=== PATIENT | female | born 1995 | race Caucasian/White ===

== ENCOUNTER 2018-07-03 04:59 | Emergency (ER) | payer MEDICAID ==
[2018-07-03 05:06] VITALS: BP 113/67
--- NOTE | 2018-07-03 07:00 | ER Document Report ---
ED GI/ - General Mode of Arrival: Ambulatory Information source: Patient TRAVEL OUTSIDE OF THE [place] IN LAST 30 DAYS: No - General Chief Complaint: Vaginal Discharge Stated Complaint: OTHER Time Seen by Provider: 07/03/18 06:43 Notes: 22-year-old female that presents to the emergency department today with complaints of vaginal discharge. Patient states she feels like she has bacterial vaginosis. Patient states she has had this in the past and her discharge was very similar however today the smell is worse. Patient states her female partner has similar symptoms. Patient states she has tried taking over- the-counter cranberry supplements with no relief. Patient denies any dysuria or vaginal bleeding. (JACKSON KWON) Past Medical History - General Information source: Patient - Social History Smoking Status: Current Every Day Smoker Cigarette use (# per day): Yes Frequency of alcohol use: None Drug Abuse: None Lives with: Family Family History: Reviewed & Not Pertinent Patient has suicidal ideation: No Patient has homicidal ideation: No Renal/ Medical History: Denies: Hx Peritoneal Dialysis Surgical Hx: Negative Review of Systems - Review of Systems Constitutional: No symptoms reported EENT: No symptoms reported Cardiovascular: No symptoms reported Respiratory: No symptoms reported Gastrointestinal: No symptoms reported Genitourinary: See HPI, Discharge. denies: Dysuria Female Genitourinary: denies: Vaginal bleeding Musculoskeletal: No symptoms reported Skin: No symptoms reported Hematologic/Lymphatic: No symptoms reported Neurological/Psychological: No symptoms reported -: Yes All other systems reviewed and negative Physical Exam - Genitourinary External exam: Normal Speculum exam: Vaginal discharge - thin and white with moderate odor Vaginal bleeding: None Bimanuel exam: Normal. No: Cervical motion tender - Vital signs Vitals: Temp Pulse BP Pulse Ox 98.4 F 117 H 113/67 93 07/03/18 05:04 07/03/18 05:04 07/03/18 05:04 07/03/18 05:04 - Notes Notes: PHYSICAL EXAM GENERAL: Alert, interacts well. No acute distress. HEAD: Normocephalic, atraumatic. EYES: Pupils equal, round, and reactive to light. Extraocular movements intact. ENT: Oral mucosa moist, tongue midline. NECK: Full range of motion. Supple. Trachea midline. LUNGS: Clear to auscultation bilaterally, no wheezes, rales, or rhonchi. No respiratory distress. HEART: Regular rate and rhythm. No murmurs, gallops, or rubs. ABDOMEN: Soft, non-tender. Non-distended. Bowel sounds present in all 4 quadrants. No guarding, rigidity, or rebound. EXTREMITIES: Moves all 4 extremities spontaneously. NEUROLOGICAL: Alert and oriented x3. Normal speech. PSYCH: Normal affect, normal mood. SKIN: Warm, dry, normal turgor. No rashes or lesions noted. (JACKSON KWON) Course - Re-evaluation Re-evalutation: 07/03/18 09:38 Urinalysis unremarkable, wet prep unremarkable, GC chlamydia negative, physical examination consistent with bacterial vaginosis, counseled on no sexual activity or anything in the vagina until Flagyl treatment has been completed. Discharged home. (YVES SHAIKH) - Vital Signs Vital signs: Temp Pulse Resp BP Pulse Ox 98.4 F 110 H 16 113/67 96 07/03/18 05:05 07/03/18 05:05 07/03/18 05:05 07/03/18 05:05 07/03/18 05:05 Discharge - Discharge Clinical Impression: Bacterial vaginosis Condition: Stable Disposition: HOME, SELF-CARE Additional Instructions: Vaginosis, Bacterial Your exam shows you have bacterial vaginosis. This condition is due to an overgrowth of bacteria in the vagina. Symptoms may include vaginal itching or pain, a smelly discharge, and sometimes burning with urination. Normally this is not transmitted by sexual contact. Vaginosis can be treated with oral or topical antibiotics. Metronidazole ( Flagyl) pills are usually effective. Topical vaginal creams include Cleocin and Metro-Gel. You should avoid sexual contact until your symptoms are all better. Do not drink alcohol with the metronidazole (Flagyl). This medication will cause you to have severe vomiting if you drink alcohol with it. Call the doctor if you develop pelvic pain, fever, or problems with urination, or if you don't improve as expected. Prescriptions: Metronidazole 500 mg PO BID #14 tablet Scribe Attestation: 07/03/18 16:15 I personally performed the services described in the documentation, reviewed and edited the documentation which was dictated to the scribe in my presence, and it accurately records my words and actions. (YVES SHAIKH) Scribe Documentation - Scribe Written by Noemi:: Noemi Del Cid, 07/03/2018 0920 acting as scribe for :: Theron
[2018-07-03 07:43] LABS: EPITHELIALS (WET MOUNT) 4+ EPITHELIALS SEEN; T.VAGINALIS (WET MOUNT) NO TRICHOMONAS SEEN; WBCS (WET MOUNT) RARE WBCS SEEN; YEAST (WET MOUNT) NO YEAST SEEN
[2018-07-03 09:10] LABS: APPEARANCE,URINE CLEAR; BILIRUBIN,URINE NEGATIVE (NEGATIVE); COLOR,URINE YELLOW; GLUCOSE, URINE NEGATIVE (NEGATIVE); KETONES,URINE NEGATIVE (NEGATIVE); LEUKOCYTE ESTERASE,URINE NEGATIVE (NEGATIVE); NITRITE,URINE NEGATIVE (NEGATIVE); PROTEIN,URINE NEGATIVE (NEGATIVE); URINE SPECIFIC GRAVITY 1.011; UROBILINOGEN,URINE NEGATIVE mg/dL (<2.0)
[2018-07-03 09:21] LABS: CHLAM PCR NOT DETECTED (NOT DETECT); GON PCR NOT DETECTED (NOT DETECT)
[2018-07-03] MEDS ORDERED: METRONIDAZOLE 500 MG TABLET PO ONE (09:38)
== END 2018-07-03 09:57 | disposition home or self-care (01) ==
LOC: ER 04:59
DX: N76.0 Acute vaginitis (principal); B96.89 Other specified bacterial agents as the cause of diseases classified elsewhere; F17.210 Nicotine dependence, cigarettes, uncomplicated
CPT/HCPCS: 81001; 81025; 87210; 87491; 87591; 99283

== ENCOUNTER 2018-11-18 21:32 | Emergency (ER) | payer MEDICAID | END 2018-11-18 22:10 | disposition left against medical advice (07) | LOC: ER 21:32 | DX: Z53.21 Procedure and treatment not carried out due to patient leaving prior to being seen by health care provider (principal); R10.2 Pelvic and perineal pain ==

== ENCOUNTER 2018-11-22 20:27 | Emergency (ER) | payer MEDICAID ==
[2018-11-22] MEDS ORDERED: NORMAL SALINE 1000 ML 1,000 ML IV ONE (22:32)
[2018-11-22] MEDS ORDERED: KETOROLAC TROMETHAMINE INJ/PF 30 MG/1 ML SDV IV ONE (22:32)
[2018-11-22] MEDS ORDERED: LIDOCAINE 2% VISCOUS SOLN 20 ML UDCUP PO ONE (22:35)
[2018-11-22] MEDS ORDERED: MAG HYDROX/AL HYDROX/SIMETH SUSP 30 ML UDCUP PO ONE (22:35)
--- NOTE | 2018-11-22 22:35 | ER Document Report ---
HPI - HPI Patient complains to provider of: Chest pain, abdominal pain, pain with intercourse Time Seen by Provider: 11/22/18 22:07 Onset: Other - 2 days Onset/Duration: Persistent Quality of pain: Achy Pain Level: 3 Context: Patient presents complaining of a 2-day history of cough and complaints of chest pain in which she points from midsternal area to epigastric area. Patient complains of hot flashes and pelvic cramping and states she has had pain with intercourse for several months. Patient states that she has had vaginal bleeding for the past month. Patient states that she did go to her psych nurse and had her IUD taken out 3 days ago as she was concerned that this may be causing her problems. Patient states that her provider wanted to do a test and STD testing before ordering any ultrasound and patient states that she is concerned that she has a pelvic infection from her IUD and would like an ultrasound. Patient states she did not need to have STD testing testing as she is a lesbian. Associated Symptoms: Chest pain, Nonproductive cough, Other - Vaginal bleeding, pelvic pain, pain with intercourse. denies: Vomiting Exacerbated by: Denies Relieved by: Denies Similar symptoms previously: No Recently seen / treated by doctor: Yes - ROS ROS below otherwise negative: Yes Systems Reviewed and Negative: Yes All other systems reviewed and negative - NEURO Neurology: DENIES: Headache - CARDIOVASCULAR Cardiovascular: REPORTS: Chest pain - RESPIRATORY Respiratory: REPORTS: Coughing - 2 days. DENIES: Trouble Breathing - GASTROINTESTINAL Gastrointestinal: REPORTS: Abdominal Pain. DENIES: Nausea, Patient vomiting - URINARY Urinary: DENIES: Dysuria - REPRODUCTIVE Reproductive: REPORTS: Abnormal bleeding / discharge. DENIES: : - MUSCULOSKELETAL Musculoskeletal: DENIES: Back Pain - DERM Skin Color: Normal Skin Problems: None Past Medical History - General Information source: Patient - Social History Smoking Status: Current Every Day Smoker Chew tobacco use (# tins/day): No Frequency of alcohol use: None Drug Abuse: None Occupation: None Family History: Reviewed & Not Pertinent Patient has suicidal ideation: No Patient has homicidal ideation: No Pulmonary Medical History: Reports: Hx Asthma Renal/ Medical History: Denies: Hx Peritoneal Dialysis Surgical Hx: Negative Vertical Provider Document - CONSTITUTIONAL Agree With Documented VS: Yes Exam Limitations: No Limitations General Appearance: WD/WN, No Apparent Distress - INFECTION CONTROL TRAVEL OUTSIDE OF THE [place] IN LAST 30 DAYS: No - HEENT HEENT: Atraumatic, Normocephalic, Pharyngeal Tenderness. negative: Pharyngeal Exudate, Pharyngeal Erythema - NECK Neck: Normal Inspection, Supple. negative: Lymphadenopathy-Left, Lymphadenop athy-Right - RESPIRATORY Respiratory: Breath Sounds Normal, No Respiratory Distress - CARDIOVASCULAR Cardiovascular: Regular Rhythm, No Murmur, Tachycardia - GI/ABDOMEN Gastrointestinal: Abdomen Soft, Abdomen Tender - Epigastric tenderness, lower pelvic tenderness, abdomen soft, no guarding, No Organomegaly - REPRODUCTIVE Female Genitalia: CMT, Adnexal Pain-Right, Adnexal Pain-Left Notes: Patient with moderate amount of vaginal bleeding, no clots. - BACK Back: Normal Inspection. negative: CVA Tenderness-Right, CVA Tenderness-Left - MUSCULOSKELETAL/EXTREMETIES Musculoskeletal/Extremeties: GERBER DAVIES - NEURO Level of Consciousness: Awake, Alert, Appropriate Motor/Sensory: No Motor Deficit - DERM Integumentary: Warm, Dry, No Rash Course - Re-evaluation Re-evalutation: 11/23/18 01:06 Patient's respirations even unlabored, no cough noted on examination. Patient with sinus rhythm noted on EKG, patient does report a history of asthma although has not had any wheezing and does have an inhaler at home. Pt reports that GI cocktail did help her epigastric pain symptoms which have resolved. Patient is concerned that she has a pelvic infection due to her IUD and would like prophylactic treatment for possible pelvic infection at this time given her history of painful intercourse. Patient with right ovarian cyst. Patient encouraged to recheck with her psych nurse for further follow-up of this finding. Patient with stable vital signs without any leukocytosis. No concern for appendicitis at this time. Patient nontoxic in appearance. Patient agreeab le with discharge plan of care. - Vital Signs Vital signs: Temp Pulse Resp BP Pulse Ox 98.7 F 111 H 14 103/66 99 11/22/18 20:41 11/22/18 20:41 11/22/18 20:41 11/22/18 20:41 11/22/18 20:41 - Laboratory Result Diagrams: 11/22/18 22:57 11/22/18 22:57 Laboratory results interpreted by me: 11/23/18 01:06 Labs- Entire Visit 11/22/18 11/22/18 11/22/18 22:57 22:57 22:57 WBC 6.0 RBC 3.92 Hgb 13.4 Hct 38.1 MCV 97 MCH 34.2 H MCHC 35.2 RDW 12.4 Plt Count 162 Seg Neutrophils % 75.4 Lymphocytes % 14.4 Monocytes % 8.6 Eosinophils % 1.2 Basophils % 0.4 Absolute Neutrophils 4.5 Absolute Lymphocytes 0.9 Absolute Monocytes 0.5 Absolute Eosinophils 0.1 Absolute Basophils 0.0 Sodium 139.8 Potassium 3.6 Chloride 102 Carbon Dioxide 30 Anion Gap 8 BUN 10 Creatinine 0.55 Est GFR ( Amer) > 60 Est GFR (Non-Af Amer) > 60 Glucose 122 H Calcium 9.4 Total Bilirubin 1.6 H Direct Bilirubin 0.0 Neonat Total Bilirubin Not Reportable Neonat Direct Bilirubin Not Reportable Neonat Indirect Bili Not Reportable AST 16 ALT 19 Alkaline Phosphatase 65 Total Protein 6.6 Albumin 4.4 Lipase 28.8 Serum HCG, Qual NEGATIVE Urine Color Urine Appearance Urine pH Ur Specific [place] Urine Protein Urine Glucose (UA) Urine Ketones Urine Blood Urine Nitrite Urine Bilirubin Urine Urobilinogen Ur Leukocyte Esterase Urine WBC (Auto) Urine RBC (Auto) Squamous Epi Cells Auto Urine Mucus (Auto) Urine Ascorbic Acid Trichomonas (Wet Prep) Vaginal WBC Vaginal RBC Vaginal Yeast Group A Strep Rapid 11/22/18 11/23/18 11/23/18 23:00 00:09 00:09 WBC RBC Hgb Hct MCV MCH MCHC RDW Plt Count Seg Neutrophils % Lymphocytes % Monocytes % Eosinophils % Basophils % Absolute Neutrophils Absolute Lymphocytes Absolute Monocytes Absolute Eosinophils Absolute Basophils Sodium Potassium Chloride Carbon Dioxide Anion Gap BUN Creatinine Est GFR ( Amer) Est GFR (Non-Af Amer) Glucose Calcium Total Bilirubin Direct Bilirubin Neonat Total Bilirubin Neonat Direct Bilirubin Neonat Indirect Bili AST ALT Alkaline Phosphatase Total Protein Albumin Lipase Serum HCG, Qual Urine Color YELLOW Urine Appearance SLIGHTLY-CLOUDY Urine pH 7.0 Ur Specific [place] 1.026 Urine Protein NEGATIVE Urine Glucose (UA) NEGATIVE Urine Ketones NEGATIVE Urine Blood NEGATIVE Urine Nitrite NEGATIVE Urine Bilirubin NEGATIVE Urine Urobilinogen 4.0 H Ur Leukocyte Esterase NEGATIVE Urine WBC (Auto) 0 Urine RBC (Auto) 0 Squamous Epi Cells Auto 2 Urine Mucus (Auto) MOD Urine Ascorbic Acid 40 H Trichomonas (Wet Prep) NO TRICHOMONAS SEEN Vaginal WBC RARE WBCS SEEN Vaginal RBC 2+ RBCS SEEN Vaginal Yeast NO YEAST SEEN Group A Strep Rapid NEGATIVE - Diagnostic Test Radiology reviewed: Reports reviewed - EKG Interpretation by Me EKG shows normal: Sinus rhythm Rate: Normal Additional EKG results interpreted by me: 11/23/18 01:[address] elevation, no T wave inversion. QTC 455 Discharge - Discharge Clinical Impression: Dyspareunia Upper respiratory infection Qualifiers: URI type: unspecified URI Qualified Code(s): J06.9 - Acute upper respiratory infection, unspecified GERD (gastroesophageal reflux disease) Qualifiers: Esophagitis presence: esophagitis presence not specified Qualified Code(s): K21.9 - Gastro-esophageal reflux disease without esophagitis Ovarian cyst Qualifiers: Laterality: right Qualified Code(s): N83.201 - Unspecified ovarian cyst, right side Condition: Stable Disposition: HOME, SELF-CARE Instructions: Doxycycline ([facility]), Ovarian Cyst ([facility]), Reflux Disease (GERD) ([facility]), Rocephin ([facility]), Upper Respiratory Illness ([facility]) Additional Instructions: Return immediately for any new or worsening symptoms Followup with your primary care provider, call tomorrow to make a followup appointment Follow-up with a psych nurse for recheck Prescriptions: Doxycycline Hyclate 100 mg PO BID #28 capsule Naproxen [Naprosyn 250 Nmg Tablet] 1 tab PO BID #14 tablet Omeprazole 20 mg PO DAILY #15 capsule. Ranitidine HCl [Zantac 150 mg Tablet] 150 mg PO BID #30 tablet Referrals: [facility] [Provider Group] - Follow up in 3-5 days
[2018-11-22 23:11] LABS: ABSOLUTE EOSINOPHILS # (AUTO) 0.1 10^3/uL (0.0-0.6); ABSOLUTE LYMPHOCYTES (AUTO) 0.9 10^3/uL (0.5-4.7); ABSOLUTE MONOCYTES (AUTO) 0.5 10^3/uL (0.1-1.4); ABSOLUTE NEUT (AUTO) 4.5 10^3/uL (1.7-8.2); BASOPHILS % (AUTO) 0.4 % (0-2); EOSINOPHILS % (AUTO) 1.2 % (0-6); HEMATOCRIT 38.1 % (36.0-47.0); HEMOGLOBIN 13.4 g/dL (12.0-15.5); LYMPHOCYTES % (AUTO) 14.4 % (13-45); MEAN CORPUSCULAR HEMOGLOBIN 34.2 pg (27.0-33.4); MEAN CORPUSCULAR HGB CONC 35.2 g/dL (32.0-36.0); MEAN CORPUSCULAR VOLUME 97 fl (80-97); MONOCYTES % (AUTO) 8.6 % (3-13); PLATELET COUNT 162 10^3/uL (150-450); RED BLOOD COUNT 3.92 10^6/uL (3.72-5.28); RED CELL DISTRIBUTION WIDTH 12.4 % (11.5-14.0); SEGMENTED NEUTROPHILS % (AUTO) 75.4 % (42-78); TOTAL CELLS COUNTED % (AUTO) 100 %
[2018-11-22 23:31] LABS: ALANINE AMINOTRANSFERASE 19 U/L (9-52); ALBUMIN 4.4 g/dL (3.5-5.0); ALKALINE PHOSPHATASE 65 U/L (38-126); ANION GAP 8 (5-19); ASPARTATE AMINO TRANSFERASE 16 U/L (14-36); BILIRUBIN,TOTAL 1.6 mg/dL (0.2-1.3); BLOOD UREA NITROGEN 10 mg/dL (7-20); CALCIUM 9.4 mg/dL (8.4-10.2); CARBON DIOXIDE 30 mmol/L (22-30); CHLORIDE 102 mmol/L (98-107); GLUCOSE 122 mg/dL (75-110); LIPASE 28.8 U/L (23-300); POTASSIUM 3.6 mmol/L (3.6-5.0); SODIUM 139.8 mmol/L (137-145); TOTAL PROTEIN 6.6 g/dL (6.3-8.2)
[2018-11-23 00:27] LABS: RBCS (WET MOUNT) 2+ RBCS SEEN; T.VAGINALIS (WET MOUNT) NO TRICHOMONAS SEEN; WBCS (WET MOUNT) RARE WBCS SEEN; YEAST (WET MOUNT) NO YEAST SEEN
[2018-11-23 00:31] LABS: APPEARANCE,URINE SLIGHTLY-CLOUDY; BILIRUBIN,URINE NEGATIVE (NEGATIVE); COLOR,URINE YELLOW; GLUCOSE, URINE NEGATIVE (NEGATIVE); KETONES,URINE NEGATIVE (NEGATIVE); LEUKOCYTE ESTERASE,URINE NEGATIVE (NEGATIVE); NITRITE,URINE NEGATIVE (NEGATIVE); PROTEIN,URINE NEGATIVE (NEGATIVE); URINE SPECIFIC GRAVITY 1.026
--- NOTE | 2018-11-23 00:45 | RADIOLOGY REPORT (SQ) ---
EXAM DESCRIPTION: US TRANSVAGINAL COMPLETED DATE/TME: 11/22/2018 22:32 CLINICAL HISTORY: 23 years, Female, pelvic pain Findings: Uterus is anteverted and measures 9.5 x 5.3 x 4.0 cm. Endometrium measures 8 mm in thickness. Cervix measures 3.4 cm in length. The right ovary measures 5.0 x 5.2 x 3.7 cm. Left ovary measures 3.5 x 2.5 x 2.2 cm. Right ovary demonstrates a simple thin-walled cyst measuring 4.7 x 4.3 cm. Vascular flow is preserved within both ovaries on color and spectral Doppler imaging. There is free fluid adjacent to the right ovary. IMPRESSION: Right ovarian cyst is noted. No imaging follow-up needed at this size and age. No evidence for torsion.
[2018-11-23] MEDS ORDERED: CEFTRIAXONE INJ 250 MG VIAL IV ONE (01:05)
[2018-11-23] MEDS ORDERED: DOXYCYCLINE HYCLATE 100 MG TABLET PO ONE (01:05)
[2018-11-23 01:15] VITALS: BP 94/58
[2018-11-23 01:53] LABS: CHLAM PCR NOT DETECTED (NOT DETECT); GON PCR NOT DETECTED (NOT DETECT)
--- NOTE | 2018-11-23 07:30 | EKG REPORT ---
SEVERITY:- NORMAL ECG - SINUS RHYTHM : Confirmed by: Jacye Baer MD 23-Nov-2018 07:29:40
== END 2018-11-23 01:57 | disposition home or self-care (01) ==
LOC: ER 20:27
DX: N94.10 Unspecified dyspareunia (principal); J06.9 Acute upper respiratory infection, unspecified; K21.9 Gastro-esophageal reflux disease without esophagitis; N83.201 Unspecified ovarian cyst, right side; R07.9 Chest pain, unspecified; R10.9 Unspecified abdominal pain; R05 Cough; N93.9 Abnormal uterine and vaginal bleeding, unspecified; R10.2 Pelvic and perineal pain; F17.200 Nicotine dependence, unspecified, uncomplicated
CPT/HCPCS: 93005; 99284; 96374; 96375; 36415; 87070; 87210; 87880; 83690; 84703; 85025; 80053; 81001; 87491; 87591; 76830; 93976; 93010; J3490 ×3; J1885; J7030; J0696

== ENCOUNTER 2019-01-02 22:46 | Emergency (ER) | payer SELFPAY ==
[2019-01-03] MEDS ORDERED: IBUPROFEN 800 MG TABLET PO ONE (01:17)
--- NOTE | 2019-01-03 01:23 | ER Document Report ---
Addendum entered and electronically signed by ZOILA CAICEDO PA-C 01/03/19 02:17: Discharge - Discharge Clinical Impression: Traumatic hematoma of multiple sites of lower extremity Qualifiers: Encounter type: initial encounter Laterality: right Qualified Code(s): S80.11XA - Contusion of right lower leg, initial encounter Condition: Good Instructions: Use of Crutches ([facility]), Ice & Elevation ([facility]), Oral Narcotic Medication ([facility]), Sprained Knee ([facility]) Additional Instructions: Keep ice for 20 minutes every hour. Elevate. Use crutches for nonweightbe aring. If your symptoms are not significantly better in about a week, consider calling the orthopedic doctor for recheck and further evaluation. Prescriptions: Naproxen 500 mg PO BID 5 Days #20 tablet Referrals: AGUS NICOLE MD [ACTIVE STAFF] - Follow up as needed Print Language: Malagasy Original Note: ED General - General Chief Complaint: Knee Injury Stated Complaint: KNEE INJURY Time Seen by Provider: 01/03/19 01:11 Mode of Arrival: Ambulatory Information source: Patient TRAVEL OUTSIDE OF THE [place] IN LAST 30 DAYS: No - HPI Patient complains to provider of: Right knee pain Onset: This afternoon Onset/Duration: Sudden Quality of pain: Sharp, Throbbing Severity: Severe Pain Level: 4 Associated symptoms: None Exacerbated by: Denies Relieved by: Denies Similar symptoms previously: No Recently seen / treated by doctor: No Notes: 23-year-old female here for right distal thigh and knee pain from injury. This afternoon she was feeding a coworkers horses and apparently 1 of the horses got over eager and started running with the patient and kicked her on accident and she has a large bruise/hematoma on the right distal femur and has pain to the right knee. She is able to ambulate. - Related Data Allergies/Adverse Reactions: No Known Allergies Allergy (Unverified 11/18/18 21:37) Past Medical History - General Information source: Patient - Social History Smoking Status: Unknown if Ever Smoked Family History: Reviewed & Not Pertinent Patient has suicidal ideation: No Patient has homicidal ideation: No Pulmonary Medical History: Reports: Hx Asthma Renal/ Medical History: Denies: Hx Peritoneal Dialysis Review of Systems - Review of Systems Notes: Constitutional: No fevers. No chills. EENT: No eye redness. No eye pain. No ear pain. No sore throat. Cardiovascular: No chest pain. No palpitations. Respiratory: No cough. No shortness of breath. No respiratory distress. Gastrointestinal: No abdominal pain. No nausea, vomiting, or diarrhea. Genitourinary: Atraumatic. No lesions. No pain. No discharge. Musculoskeletal: Positive for pain to right distal thigh and right knee. Positive bruising and swelling right thigh Skin: No rash or lesions. Lymphatic: No swollen lymph nodes. Neurologic: No headache. No syncope. Psychiatric: No suicidal or homicidal ideation. Physical Exam - Vital signs Vitals: Temp Pulse Resp BP Pulse Ox 98.2 F 85 16 122/76 99 01/02/19 22:58 01/02/19 22:58 01/02/19 22:58 01/02/19 22:58 01/02/19 22:58 - Notes Notes: General: Well-developed, well-nourished. In no acute distress. Non-toxic appearing. Cardiac: Well-perfused. Regular rate and rhythm. No murmurs, rubs, or gallops. Pulmonary: No respiratory distress. No cyanosis. Bilateral lung fiels are clear to auscultation. Abdominal: Non-distended. Non-rigid. Bowels sounds are present in all four quadrants. No guarding or rebound. HEENT: Head is atraumatic. Conjunctivae not reddened. No tearing. PERRL. EOMI. Orbits atraumatic. No periorbital swelling or erythema. Oropharynx is without erythema, swelling, or exudates. Neck: Supple. No adenopathy. No meningismus. Dermatologic: Warm with good turgor. No rash. Atraumatic. Chest: Atraumatic. No chest wall tenderness to palpation. Musculoskeletal: There is a large hematoma and some tenderness to palpation over the distal femoral region of the right lower extremity. There is no bony deformity. There is no shortening or rotation. The knee is diffusely tender but appears atraumatic. Full flexion and extension and no ligamentous laxity appreciated. Distal neurovascular exam is intact Genitourinary: Examination deferred Neurologic: No gross neurologic deficits. Psychiatric: Normal mood. Course - Re-evaluation Re-evalutation: 01/03/19 01:23 Most likely just hematoma but will get some films of the knee 01/03/19 02:13 X-rays negative as expected. Juliano wrap to the right distal thigh and knee and crutches with training given. Will treat as hematoma or contusion. Patient advised to ice and elevate 20 minutes/h use crutches so no direct weightbearing and outpatient follow-up as needed - Vital Signs Vital signs: Temp Pulse Resp BP Pulse Ox 98.2 F 85 16 122/76 99 01/02/19 22:58 01/02/19 22:58 01/02/19 22:58 01/02/19 22:58 01/02/19 22:58 Discharge - Discharge Clinical Impression: Traumatic hematoma of multiple sites of lower extremity Qualifiers: Encounter type: initial encounter Laterality: right Qualified Code(s): S80.11XA - Contusion of right lower leg, initial encounter Condition: Good Instructions: Use of Crutches ([facility]), Ice & Elevation ([facility]), Sprained Knee ([facility]), Oral Narcotic Medication ([facility]) Additional Instructions: Keep ice for 20 minutes every hour. Elevate. Use crutches for nonweightbearing. If your symptoms are not significantly better in about a week, consider calling the orthopedic doctor for recheck and further evaluation. Prescriptions: Naproxen 500 mg PO BID 5 Days #20 tablet Referrals: AGUS NICOLE MD [ACTIVE STAFF] - Follow up as needed Print Language: Malagasy
--- NOTE | 2019-01-03 01:55 | RADIOLOGY REPORT (SQ) ---
EXAM DESCRIPTION: XR KNEE 4 OR MORE VIEWS COMPLETED DATE/TME: 01/03/2019 01:18 CLINICAL HISTORY: 23 years, Female, trauma; distal femur hematoma from horse kick COMPARISON: None. NUMBER OF VIEWS: 4 TECHNIQUE: 4 views right knee LIMITATIONS: None. FINDINGS: Negative for fracture or dislocation. Soft tissues are unremarkable IMPRESSION: Negative exam copyright 2010 [employer]- All Rights Reserved
[2019-01-03] MEDS ORDERED: HYDROCODONE/ACETAMINOPHEN 5-325 MG (6 TAB/ER DISP) PO PRN (02:13)
[2019-01-03 02:26] VITALS: BP 106/72
== END 2019-01-03 02:29 | disposition home or self-care (01) ==
LOC: ER 22:46
DX: S70.11XA Contusion of right thigh, initial encounter (principal); S80.11XA Contusion of right lower leg, initial encounter; M25.561 Pain in right knee; W55.12XA Struck by horse, initial encounter; Y93.K9 Activity, other involving animal care; J45.909 Unspecified asthma, uncomplicated
CPT/HCPCS: 99283

== ENCOUNTER 2019-03-10 07:57 | Emergency (ER) | payer SELFPAY ==
[2019-03-10] MEDS ORDERED: METHOCARBAMOL 750 MG TABLET PO ONE (09:20)
[2019-03-10] MEDS ORDERED: IBUPROFEN 800 MG TABLET PO ONE (09:20)
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
--- NOTE | 2019-03-10 10:05 | RADIOLOGY REPORT (SQ) ---
EXAM DESCRIPTION: CT CERVICAL SPINE WITHOUT COMPLETED DATE/TIME: 03/10/2019 9:50 am REASON FOR STUDY: neck injury from fall COMPARISON: None. TECHNIQUE: Axial images acquired through the cervical spine without intravenous contrast. Images re viewed with lung, soft tissue and bone windows. Reconstructed coronal and sagittal MPR images review ed. Images stored on PACS. All CT scanners at this facility use dose modulation, iterative reconstruction, and/or weight based d osing when appropriate to reduce radiation dose to as low as reasonably achievable (ALARA). [facility]: Dose Right [facility]: CareDose [facility]: Dose Right [facility]: Teradose 4D [facility]: [employer] RADIATION DOSE: CT Rad equipment meets quality standard of care and radiation dose reduction techniq ues were employed. CTDIvol: 8.4 mGy. DLP: 185 mGy-cm. mGy. LIMITATIONS: None. FINDINGS: ALIGNMENT: Reversal of the lordotic curve. MINERALIZATION: Normal. VERTEBRAL BODIES: No fractures or dislocation. DISCS: No significant disc disease. FACETS, LATERAL MASSES, POSTERIOR ELEMENTS: No fractures. No dislocation. No acute findings. HARDWARE: None in the spine. VISUALIZED RIBS: No fractures. LUNG APICES AND SOFT TISSUES: No significant or acute findings. OTHER: No other significant finding. IMPRESSION: NO ACUTE OR SIGNIFICANT FINDINGS IN THE CERVICAL SPINE. TECHNICAL DOCUMENTATION: JOB ID: [id number] Quality ID # [id number]: Final reports with documentation of one or more dose reduction techniques (e.g., Au tomated exposure control, adjustment of the mA and/or kV according to patient size, use of iterative reconstruction technique) 2010 [employer]- All Rights Reserved Reading location - IP/workstation name: [email or web address]
[2019-03-10 10:31] VITALS: BP 102/68
== END 2019-03-10 10:33 | disposition home or self-care (01) ==
LOC: ER 07:57
DX: T14.8XXA Other injury of unspecified body region, initial encounter (principal); M54.2 Cervicalgia; Y04.0XXA Assault by unarmed brawl or fight, initial encounter; S20.91XA Abrasion of unspecified parts of thorax, initial encounter; X58.XXXA Exposure to other specified factors, initial encounter; J45.909 Unspecified asthma, uncomplicated; F17.200 Nicotine dependence, unspecified, uncomplicated
CPT/HCPCS: 99283; 72125; J3490

== ENCOUNTER 2019-03-21 12:13 | Emergency (ER) | payer SELFPAY ==
[2019-03-21] MEDS ORDERED: ACETAMINOPHEN 325 MG TABLET PO ONE (12:52)
[2019-03-21] MEDS ORDERED: LIDOCAINE 5% (700 MG) TRANSDERMAL ADH..PATCH TP ONE (12:52)
[2019-03-21 12:53] VITALS: BP 121/74
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
== END 2019-03-21 13:15 | disposition home or self-care (01) ==
LOC: ER 12:13
DX: S16.1XXA Strain of muscle, fascia and tendon at neck level, initial encounter (principal); M54.2 Cervicalgia; W19.XXXA Unspecified fall, initial encounter; M62.830 Muscle spasm of back; F17.200 Nicotine dependence, unspecified, uncomplicated; J45.909 Unspecified asthma, uncomplicated
CPT/HCPCS: 99283

== ENCOUNTER 2019-06-11 14:36 | Emergency (ER) | payer SELFPAY ==
[2019-06-11 15:48] LABS: AMORPHOUS SEDIMENT,URINE TRACE /HPF; APPEARANCE,URINE CLOUDY; BILIRUBIN,URINE NEGATIVE (NEGATIVE); COLOR,URINE YELLOW; GLUCOSE, URINE NEGATIVE (NEGATIVE); KETONES,URINE NEGATIVE (NEGATIVE); LEUKOCYTE ESTERASE,URINE TRACE (NEGATIVE); NITRITE,URINE NEGATIVE (NEGATIVE); PROTEIN,URINE 30 mg/dL (NEGATIVE); URINE SPECIFIC GRAVITY 1.015
--- NOTE | 2019-06-11 16:06 | ER Document Report ---
HPI - HPI Time Seen by Provider: 06/11/19 15:14 Pain Level: 3 Notes: Patient is an otherwise healthy 23-year-old female presenting to the emergency department chief complaint of dysuria, right flank pain and urinary frequency that started 2 days ago. Patient denies any blood in her urine. Patient denies any fevers, nausea, vomiting or diarrhea. Patient denies any abnormal vaginal discharge or bleeding. Patient denies history of kidney stones. - REPRODUCTIVE Reproductive: DENIES: : - DERM Skin Color: Normal Past Medical History - General Information source: Patient - Social History Smoking Status: Never Smoker Family History: Reviewed & Not Pertinent Patient has suicidal ideation: No Patient has homicidal ideation: No Pulmonary Medical History: Reports: Hx Asthma Renal/ Medical History: Denies: Hx Peritoneal Dialysis - Immunizations Immunizations up to date: Yes Hx Diphtheria, Pertussis, Tetanus Vaccination: Yes Vertical Provider Document - CONSTITUTIONAL Notes: GENERAL: Well-appearing, well-nourished and in no acute distress. HEAD: Atraumatic, normocephalic. EYES: Pupils equal round and reactive to light, extraocular movements intact, conjunctiva are normal. ENT: Nares patent, oropharynx clear without exudates. Moist mucous membranes. NECK: Normal range of motion, supple without lymphadenopathy LUNGS: Breath sounds clear to auscultation bilaterally and equal. No wheezes rales or rhonchi. HEART: Regular rate and rhythm without murmurs ABDOMEN: Soft, nontender, nondistended abdomen. No guarding, no rebound. No masses appreciated. Female : Right CVA tenderness. Musculoskeletal: Normal range of motion, no pitting or edema. No cyanosis. NEUROLOGICAL: Cranial nerves grossly intact. Normal speech, normal gait. Normal sensory, motor exams PSYCH: Normal mood, normal affect. SKIN: Warm, Dry, normal turgor, no rashes or lesions noted. - INFECTION CONTROL TRAVEL OUTSIDE OF THE [place] IN LAST 30 DAYS: No Course - Re-evaluation Re-evalutation: Well-appearing nontoxic female in no acute distress. Patient's history as well as physical examination and urinalysis are consistent with urinary tract infection. Patient will be started on antibiotics and Pyridium. Strict ED return precautions were discussed, patient verbalizes understanding and agreement with this plan. - Vital Signs Vital signs: Temp Pulse Resp BP Pulse Ox 98.9 F 87 16 126/73 H 100 09/10/19 14:41 06/11/19 14:41 06/11/19 14:41 06/11/19 14:41 06/11/19 14:41 - Laboratory Result Diagrams: 06/11/19 16:47 06/11/19 16:47 Laboratory results interpreted by me: 06/11/19 15:19 Urine Protein 30 H Urine Urobilinogen 2.0 H Ur Leukocyte Esterase TRACE H Discharge - Discharge Clinical Impression: UTI (urinary tract infection) Qualifiers: Urinary tract infection type: site unspecified Hematuria presence: without hematuria Qualified Code(s): N39.0 - Urinary tract infection, site not specified Abdominal pain Qualifiers: Abdominal location: unspecified location Qualified Code(s): R10.9 - Unspecified abdominal pain Condition: Stable Disposition: HOME, SELF-CARE Additional Instructions: Abdominal Pain There are many causes of abdominal pain. Pain can mean a serious problem requiring surgery (such as appendicitis). It can also be an innocent problem that goes away on its own (such as a viral infection). Often, time must pass to determine the cause of pain. The physician does not feel that hospitalization is necessary, at present. Things may change within the next 24 hours. Call the doctor or come back for re- examination if any problems occur, such as: (1) Pain that becomes more severe, steady, or becomes concentrated in one specific area. Also, pain that is more severe with movement or coughing. (2) Vomiting that persists or becomes more frequent. (3) Blood in the vomitus, urine, or bowel movements. Blood in the stool may have a tarry or black appearance. (4) Shaking chills or fever greater than 100 degrees F. (5) The abdomen becomes more distended or swollen. (6) Bowel movements cease. (7) Failure to improve as expected. Your urine shows findings consistent with a urinary tract infection. Please take all the antibiotics as directed even if your symptoms have improved. Please follow-up with your primary care physician as needed. Return to emergency room if you develop fever >101F, persistent vomiting, become lethargic, have severe pain in your sides, or any other symptoms that are concerning to you. Prescriptions: Cephalexin [Cephalexin 500 MG Tablet] 1 tab PO BID #14 tablet Phenazopyridine HCl [Pyridium 100 Mg Tablet] 100 mg PO TID #6 tablet
[2019-06-11] MEDS ORDERED: KETOROLAC TROMETHAMINE 60 MG/2 ML SDV IM ONE (16:22)
[2019-06-11 17:06] LABS: ABSOLUTE EOSINOPHILS # (AUTO) 0.1 10^3/uL (0.0-0.6); ABSOLUTE LYMPHOCYTES (AUTO) 1.4 10^3/uL (0.5-4.7); ABSOLUTE MONOCYTES (AUTO) 0.5 10^3/uL (0.1-1.4); ABSOLUTE NEUT (AUTO) 4.2 10^3/uL (1.7-8.2); BASOPHILS % (AUTO) 0.5 % (0-2); EOSINOPHILS % (AUTO) 1.8 % (0-6); HEMATOCRIT 43.4 % (36.0-47.0); HEMOGLOBIN 15.2 g/dL (12.0-15.5); LYMPHOCYTES % (AUTO) 22.5 % (13-45); MEAN CORPUSCULAR HEMOGLOBIN 34.9 pg (27.0-33.4); MEAN CORPUSCULAR HGB CONC 34.9 g/dL (32.0-36.0); MEAN CORPUSCULAR VOLUME 100 fl (80-97); MONOCYTES % (AUTO) 8.2 % (3-13); PLATELET COUNT 171 10^3/uL (150-450); RED BLOOD COUNT 4.35 10^6/uL (3.72-5.28); RED CELL DISTRIBUTION WIDTH 12.9 % (11.5-14.0); TOTAL CELLS COUNTED % (AUTO) 100 %; WHITE BLOOD COUNT 6.3 10^3/uL (4.0-10.5)
[2019-06-11 17:25] LABS: ALBUMIN 4.5 g/dL (3.5-5.0); ALKALINE PHOSPHATASE 49 U/L (38-126); ANION GAP 10 (5-19); ASPARTATE AMINO TRANSFERASE 27 U/L (14-36); BILIRUBIN,DIRECT 0.1 mg/dL (0.0-0.4); BILIRUBIN,TOTAL 1.1 mg/dL (0.2-1.3); BLOOD UREA NITROGEN 9 mg/dL (7-20); CALCIUM 9.7 mg/dL (8.4-10.2); CARBON DIOXIDE 27 mmol/L (22-30); CHLORIDE 101 mmol/L (98-107); GLUCOSE 78 mg/dL (75-110); POTASSIUM 4.4 mmol/L (3.6-5.0); TOTAL PROTEIN 7.3 g/dL (6.3-8.2)
--- NOTE | 2019-06-11 18:03 | RADIOLOGY REPORT (SQ) ---
EXAM DESCRIPTION: U/S RETROPERITON (RENAL/AORTA) COMPLETED DATE/TIME: 06/11/2019 5:51 pm REASON FOR STUDY: right flank pain eval for stone COMPARISON: None. TECHNIQUE: Dynamic and static grayscale images acquired of the kidneys and bladder and recorded on P ACS. Additional selected color Doppler and spectral images recorded. LIMITATIONS: None. FINDINGS: RIGHT KIDNEY: Normal size, 10.7 cm. Normal echogenicity. No solid or suspicious masses. No hydronephrosis. No calcifications. LEFT KIDNEY: Normal size, 10.8 cm. Normal echogenicity. No solid or suspicious masses. No hydronephr osis. No calcifications. BLADDER: Incompletely filled. Urinary jets were not seen. OTHER FINDINGS: No other significant finding. IMPRESSION: Normal study. The bladder was not well evaluated. TECHNICAL DOCUMENTATION: JOB ID: [id number] [employer]- All Rights Reserved Reading location - IP/workstation name: [email or web address]
[2019-06-11 18:39] VITALS: BP 103/59
== END 2019-06-11 18:30 | disposition home or self-care (01) ==
LOC: ER 14:36
DX: N39.0 Urinary tract infection, site not specified (principal); R30.0 Dysuria; R35.0 Frequency of micturition; R10.9 Unspecified abdominal pain; J45.909 Unspecified asthma, uncomplicated
CPT/HCPCS: 36415; 85025; 81025; 80053; 81001; 76770; J1885; 96374; 99284

== ENCOUNTER 2019-07-06 10:10 | Emergency (ER) | payer SELFPAY ==
[2019-07-06] MEDS ORDERED: KETOROLAC TROMETHAMINE INJ/PF 30 MG/1 ML SDV IV ONE (10:55)
--- NOTE | 2019-07-06 10:55 | ER Document Report ---
ED Medical Screen (RME) - General Chief Complaint: Abdominal Pain Stated Complaint: ABDOMINAL PAIN,NAUSEA Time Seen by Provider: 07/06/19 10:28 Mode of Arrival: Ambulatory Information source: Patient Notes: Patient is a otherwise healthy 23-year-old female presenting to emergency department with lower abdominal pain is been ongoing for 1 week. She also reports back pain, nausea and dysuria. She denies any abnormal vaginal discharge. She states she was seen here 3 weeks ago diagnosed with UTI. Patient initially very upset that she had to repeat her story to me as she already told the nurse what was going on. Patient also initially requesting to have a urine done only. Patient further reports that she is concerned she could have appendicitis. Patient ultimately did agree to have blood work done at this time. Exam: Abd soft, non-tender. I have greeted and performed a rapid initial assessment of this patient. A comprehensive ED assessment and evaluation of the patient, analysis of test results and completion of the medical decision making process will be conducted by additional ED providers. I have specifically instructed the patient or family members with the patient to immediately return to any nursing staff should anything change in the patient's condition or with their chief complaint. This medical record was dictated with voice recognizing software. There may be grammatical, syntax errors that are unintended. TRAVEL OUTSIDE OF THE [place] IN LAST 30 DAYS: No - Related Data Allergies/Adverse Reactions: No Known Allergies Allergy (Verified 04/22/19 11:27) Past Medical History - Social History Chew tobacco use (# tins/day): No Frequency of alcohol use: None Drug Abuse: None Pulmonary Medical History: Reports: Hx Asthma Renal/ Medical History: Denies: Hx Peritoneal Dialysis - Immunizations Immunizations up to date: Yes Hx Diphtheria, Pertussis, Tetanus Vaccination: Yes Physical Exam - Vital signs Vitals: Temp Pulse Resp BP Pulse Ox 97.8 F 93 18 111/66 98 07/06/19 10:11 07/06/19 10:11 07/06/19 10:11 07/06/19 10:11 07/06/19 10:11 Course - Vital Signs Vital signs: Temp Pulse Resp BP Pulse Ox 97.8 F 93 18 111/66 98 07/06/19 10:11 07/06/19 10:11 07/06/19 10:11 07/06/19 10:11 07/06/19 10:11
[2019-07-06 11:34] LABS: ABSOLUTE EOSINOPHILS # (AUTO) 0.1 10^3/uL (0.0-0.6); ABSOLUTE LYMPHOCYTES (AUTO) 1.3 10^3/uL (0.5-4.7); ABSOLUTE MONOCYTES (AUTO) 0.5 10^3/uL (0.1-1.4); BASOPHILS % (AUTO) 0.6 % (0-2); EOSINOPHILS % (AUTO) 1.6 % (0-6); HEMATOCRIT 42.6 % (36.0-47.0); HEMOGLOBIN 14.5 g/dL (12.0-15.5); LYMPHOCYTES % (AUTO) 19.1 % (13-45); MEAN CORPUSCULAR VOLUME 100 fl (80-97); MONOCYTES % (AUTO) 7.3 % (3-13); PLATELET COUNT 197 10^3/uL (150-450); RED BLOOD COUNT 4.26 10^6/uL (3.72-5.28); RED CELL DISTRIBUTION WIDTH 12.9 % (11.5-14.0); SEGMENTED NEUTROPHILS % (AUTO) 71.4 % (42-78); TOTAL CELLS COUNTED % (AUTO) 100 %; WHITE BLOOD COUNT 6.9 10^3/uL (4.0-10.5)
[2019-07-06 11:38] LABS: APPEARANCE,URINE SLIGHTLY-CLOUDY; BILIRUBIN,URINE NEGATIVE (NEGATIVE); COLOR,URINE YELLOW; GLUCOSE, URINE NEGATIVE (NEGATIVE); KETONES,URINE NEGATIVE (NEGATIVE); LEUKOCYTE ESTERASE,URINE MODERATE (NEGATIVE); NITRITE,URINE NEGATIVE (NEGATIVE); PROTEIN,URINE NEGATIVE (NEGATIVE); URINE SPECIFIC GRAVITY 1.016; UROBILINOGEN,URINE NEGATIVE mg/dL (<2.0)
[2019-07-06] MEDS ORDERED: CEFTRIAXONE 1 GM/D5W RTU 50 ML IV ONE (12:06)
[2019-07-06 12:07] LABS: ALBUMIN 4.2 g/dL (3.5-5.0); ALKALINE PHOSPHATASE 66 U/L (38-126); ANION GAP 8 (5-19); ASPARTATE AMINO TRANSFERASE 19 U/L (14-36); BILIRUBIN,DIRECT 0.1 mg/dL (0.0-0.4); BILIRUBIN,TOTAL 0.5 mg/dL (0.2-1.3); BLOOD UREA NITROGEN 12 mg/dL (7-20); CALCIUM 9.5 mg/dL (8.4-10.2); CARBON DIOXIDE 27 mmol/L (22-30); CHLORIDE 104 mmol/L (98-107); GLUCOSE 92 mg/dL (75-110); POTASSIUM 4.7 mmol/L (3.6-5.0); TOTAL PROTEIN 6.9 g/dL (6.3-8.2)
[2019-07-06] MEDS ORDERED: OXYCODONE-ACETAMINOPHEN 5-325 MG TABLET PO ONE (12:07)
[2019-07-06] MEDS ORDERED: PHENAZOPYRIDINE HCL 100 MG TABLET PO ONE (12:07)
[2019-07-06] MEDS ORDERED: NITROFURANTOIN MONOHYD/M-CRYST 100 MG CAPSULE PO ONE (12:07)
[2019-07-06] MEDS ORDERED: CEFTRIAXONE 1 GM/D5W RTU 1 GM/50 ML RTUPB IV ONE ×2 (12:11→12:15)
--- NOTE | 2019-07-06 12:14 | ER Document Report ---
HPI - HPI Time Seen by Provider: 07/06/19 10:28 Pain Level: 4 Notes: Patient is a otherwise healthy 23-year-old female presenting to emergency department with lower abdominal pain is been ongoing for 1 week. She also reports back pain, nausea and dysuria. She denies any abnormal vaginal discharge. She states she was seen here 3 weeks ago diagnosed with UTI. Wing nt initially very upset that she had to repeat her story to me as she already told the nurse what was going on. Patient also initially requesting to have a urine done only. Patient further reports that she is concerned she could have appendicitis. Patient ultimately did agree to have blood work done at this time. - CONSTITUTIONAL Constitutional: DENIES: Fever, Chills - GASTROINTESTINAL Gastrointestinal: REPORTS: Abdominal Pain - RLQ LLQ - REPRODUCTIVE Reproductive: DENIES: : Past Medical History - General Information source: Patient - Social History Smoking Status: Current Every Day Smoker Chew tobacco use (# tins/day): No Frequency of alcohol use: None Drug Abuse: None Family History: Reviewed & Not Pertinent Patient has suicidal ideation: No Patient has homicidal ideation: No Pulmonary Medical History: Reports: Hx Asthma Renal/ Medical History: Denies: Hx Peritoneal Dialysis - Immunizations Immunizations up to date: Yes Hx Diphtheria, Pertussis, Tetanus Vaccination: Yes Vertical Provider Document - CONSTITUTIONAL Notes: PHYSICAL EXAMINATION: GENERAL: Well-appearing, well-nourished and in no acute distress. HEAD: Atraumatic, normocephalic. EYES: Pupils equal round and reactive to light, extraocular movements intact, conjunctiva are normal. ENT: Nares patent, oropharynx clear without exudates. Moist mucous membranes. NECK: Normal range of motion, supple without lymphadenopathy LUNGS: Breath sounds clear to auscultation bilaterally and equal. No wheezes rales or rhonchi. HEART: Regular rate and rhythm without murmurs ABDOMEN: Soft, nontender, nondistended abdomen. No guarding, no rebound. No ma sses appreciated. Female : No CVA tenderness. Musculoskeletal: Normal range of motion, no pitting or edema. No cyanosis. NEUROLOGICAL: Cranial nerves grossly intact. Normal speech, normal gait. Normal sensory, motor exams PSYCH: Normal mood, normal affect. SKIN: Warm, Dry, normal turgor, no rashes or lesions noted. - INFECTION CONTROL TRAVEL OUTSIDE OF THE [place] IN LAST 30 DAYS: No Course - Re-evaluation Re-evalutation: Patient's urinalysis consistent with UTI. Patient has no CVA tenderness and has not been vomiting. She has no fever. Safe to discharge patient home on oral antibiotics pending urine culture. Patient is agreeable to this plan. Patient understands ED return precautions. Laboratory 07/06/19 07/06/19 07/06/19 11:15 11:15 11:15 WBC 6.9 RBC 4.26 Hgb 14.5 Hct 42.6 MCV 100 H MCH 34.0 H MCHC 34.0 RDW 12.9 Plt Count 197 Lymph % (Auto) 19.1 Coffey % (Auto) 7.3 Eos % (Auto) 1.6 Baso % (Auto) 0.6 Absolute Neuts (auto) 5.0 Absolute Lymphs (auto) 1.3 Absolute Monos (auto) 0.5 Absolute Eos (auto) 0.1 Absolute Basos (auto) 0.0 Seg Neutrophils % 71.4 Sodium 139.3 Potassium 4.7 Chloride 104 Carbon Dioxide 27 Anion Gap 8 BUN 12 Creatinine 0.55 Est GFR ( Amer) > 60 Est GFR (MDRD) Non-Af > 60 Glucose 92 Calcium 9.5 Total Bilirubin 0.5 Direct Bilirubin 0.1 Neonat Total Bilirubin Not Reportable Neonat Direct Bilirubin Not Reportable Neonat Indirect Bili Not Reportable AST 19 ALT 20 Alkaline Phosphatase 66 Total Protein 6.9 Albumin 4.2 Lipase 60.6 Urine Color YELLOW Urine Appearance SLIGHTLY-CLOUDY Urine pH 7.0 Ur Specific [place] 1.016 Urine Protein NEGATIVE Urine Glucose (UA) NEGATIVE Urine Ketones NEGATIVE Urine Blood SMALL H Urine Nitrite NEGATIVE Urine Bilirubin NEGATIVE Urine Urobilinogen NEGATIVE Ur Leukocyte Esterase MODERATE H Urine WBC (Auto) 100 Urine RBC (Auto) 2 Urine Bacteria (Auto) TRACE Squamous Epi Cells Auto 3 Urine Mucus (Auto) RARE Urine Ascorbic Acid NEGATIVE Urine HCG, Qual NEGATIVE - Vital Signs Vital signs: Temp Pulse Resp BP Pulse Ox 97.8 F 93 18 111/66 98 07/06/19 10:11 07/06/19 10:11 07/06/19 10:11 07/06/19 10:11 07/06/19 10:11 - Laboratory Result Diagrams: 07/06/19 11:15 07/06/19 11:15 Laboratory results interpreted by me: 07/06/19 07/06/19 11:15 11:15 MCV 100 H MCH 34.0 H Urine Blood SMALL H Ur Leukocyte Esterase MODERATE H Discharge - Discharge Clinical Impression: Urinary tract infection Qualifiers: Urinary tract infection type: site unspecified Hematuria presence: without hematuria Qualified Code(s): N39.0 - Urinary tract infection, site not specified Condition: Stable Disposition: HOME, SELF-CARE Additional Instructions: Your urine shows findings consistent with a urinary tract infection. We are changing the antibiotic that you took last time to something different since the last antibiotic did not help. Please take all the antibiotics as directed even if your symptoms have improved. Please follow-up with your primary care physician as needed. Return to emergency room if you develop fever >101F, persistent vomiting, become lethargic, have severe pain in your sides, or any other symptoms that are concerning to you. Prescriptions: Nitrofurantoin/Nitrofuran Mac [Macrobid 100 mg Capsule] 1 tab PO BID #14 capsule Phenazopyridine HCl [Pyridium 100 Mg Tablet] 100 mg PO TID #6 tablet Forms: Return to Work Referrals: [facility] [Provider Group] - Follow up as needed
[2019-07-06 12:42] VITALS: BP 109/68
== END 2019-07-06 12:43 | disposition home or self-care (01) ==
LOC: ER 10:10
DX: N39.0 Urinary tract infection, site not specified (principal); R10.31 Right lower quadrant pain; R10.32 Left lower quadrant pain; M54.9 Dorsalgia, unspecified; R11.0 Nausea; R30.0 Dysuria; F17.200 Nicotine dependence, unspecified, uncomplicated; J45.909 Unspecified asthma, uncomplicated
CPT/HCPCS: 36415; 87086; 83690; 85025; 81025; 80053; 81001; J1885; J3490; J0696; J8499; 87186; 96374; 96375; 99284

== ENCOUNTER 2019-11-05 21:00 | Emergency (ER) | payer SELFPAY ==
[2019-11-05 21:42] VITALS: BP 101/66
--- NOTE | 2019-11-05 22:01 | EKG REPORT ---
SEVERITY:- OTHERWISE NORMAL ECG - SINUS TACHYCARDIA : Confirmed by: Olivia Rae MD 05-Nov-2019 21:59:09
[2019-11-05] MEDS ORDERED: ACETAMINOPHEN 325 MG TABLET PO ONE (22:48)
[2019-11-05] MEDS ORDERED: NORMAL SALINE 1000 ML 1,000 ML IV ONE (22:48)
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
== END 2019-11-06 01:00 | disposition left against medical advice (07) ==
LOC: ER 21:00
DX: S06.9X9A Unspecified intracranial injury with loss of consciousness of unspecified duration, initial encounter (principal); R51 Headache; W50.0XXA Accidental hit or strike by another person, initial encounter; Y92.009 Unspecified place in unspecified non-institutional (private) residence as the place of occurrence of the external cause; J45.909 Unspecified asthma, uncomplicated; Z53.29 Procedure and treatment not carried out because of patient's decision for other reasons
CPT/HCPCS: 70450; 70486; 93005; 93010; 99281

== ENCOUNTER 2019-11-06 15:47 | Emergency (ER) | payer SELFPAY ==
[2019-11-06 16:21] VITALS: BP 109/75
[2019-11-06] MEDS ORDERED: ACETAMINOPHEN 325 MG TABLET PO ONE (16:46)
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
[2019-11-06 18:21] LABS: ABSOLUTE EOSINOPHILS # (AUTO) 0.1 10^3/uL (0.0-0.6); ABSOLUTE LYMPHOCYTES (AUTO) 1.7 10^3/uL (0.5-4.7); ABSOLUTE MONOCYTES (AUTO) 0.4 10^3/uL (0.1-1.4); ABSOLUTE NEUT (AUTO) 3.4 10^3/uL (1.7-8.2); BASOPHILS % (AUTO) 0.5 % (0-2); EOSINOPHILS % (AUTO) 1.7 % (0-6); HEMATOCRIT 41.8 % (36.0-47.0); HEMOGLOBIN 14.7 g/dL (12.0-15.5); LYMPHOCYTES % (AUTO) 29.6 % (13-45); MEAN CORPUSCULAR HEMOGLOBIN 34.5 pg (27.0-33.4); MEAN CORPUSCULAR HGB CONC 35.1 g/dL (32.0-36.0); MEAN CORPUSCULAR VOLUME 98 fl (80-97); PLATELET COUNT 210 10^3/uL (150-450); RED BLOOD COUNT 4.25 10^6/uL (3.72-5.28); SEGMENTED NEUTROPHILS % (AUTO) 61.2 % (42-78); TOTAL CELLS COUNTED % (AUTO) 100 %; WHITE BLOOD COUNT 5.6 10^3/uL (4.0-10.5)
[2019-11-06 18:25] LABS: AMORPHOUS SEDIMENT,URINE TRACE /HPF; APPEARANCE,URINE CLOUDY; BILIRUBIN,URINE NEGATIVE (NEGATIVE); COLOR,URINE AMBER; GLUCOSE, URINE NEGATIVE (NEGATIVE); KETONES,URINE TRACE mg/dL (NEGATIVE); LEUKOCYTE ESTERASE,URINE SMALL (NEGATIVE); NITRITE,URINE NEGATIVE (NEGATIVE); PROTEIN,URINE 30 mg/dL (NEGATIVE); URINE SPECIFIC GRAVITY 1.033
[2019-11-06 18:44] LABS: URINE BARBITURATES SCREEN NEGATIVE; URINE COCAINE SCREEN NEGATIVE; URINE METHADONE SCREEN NEGATIVE; URINE PHENCYCLIDINE SCREEN NEGATIVE
[2019-11-06 18:46] LABS: ANION GAP 7 (5-19); BLOOD UREA NITROGEN 13 mg/dL (7-20); CALCIUM 9.7 mg/dL (8.4-10.2); CARBON DIOXIDE 28 mmol/L (22-30); CHLORIDE 104 mmol/L (98-107); GLUCOSE 98 mg/dL (75-110); POTASSIUM 4.7 mmol/L (3.6-5.0)
[2019-11-06 18:47] LABS: URINE BENZODIAZEPINES SCREEN UNCONFIRMED POSITIVE
[2019-11-06 18:48] LABS: URINE AMPHETAMINES SCREEN UNCONFIRMED POSITIVE; URINE MARIJUANA (THC) SCREEN UNCONFIRMED POSITIVE
== END 2019-11-07 00:27 | disposition left against medical advice (07) ==
LOC: ER 15:47
DX: Z53.21 Procedure and treatment not carried out due to patient leaving prior to being seen by health care provider (principal); R51 Headache
CPT/HCPCS: 36415; 80048; 80307; 81001; 81025; 85025